=== PATIENT | male | born 1955 | race Caucasian/White ===

== ENCOUNTER 2023-07-27 13:03 | Outpatient (RCR) | payer MEDICARE, OTHER ==
[~2023-07-27 13:03] MED LIST: ASPIRIN 81M81 MG/TA2 PO; CALCIUM CITRAT950 MG PO; CARBATROL200 MG PO; CATAPRES 0.1MG0.1 MG PO; COLACE 100100 MG/CAP PO; COREG 25MG25 MG/TAB PO; COZAAR100 MG PO; CRESTOR20 MG PO; DARVOCET-N-101 UDTAB PO; DULCOLAX TAB5 MG PO; FLOMAX 0.40.4 MG/CAP PO; GABAPENTIN300 M1 PO; GLIMEPIRIDE PO; GLUCOPHAGE500 MG/TAB PO; HCTZ 25MG TAB25 MG PO; LAMICTAL 100MG100 MG PO; LAMICTAL PO; LANTUS100 U/ML SQ; LEVAMIR SQ; LISINOPRIL/HCTZ1 TAB PO; LISINOPRIL10 MG PO; MELATIN 3 MG-11 TAB PO; MSIR30 MG PO; NEURONTIN100 MG/CAP PO; NORVASC 10MG10 MG PO; NOVOLOG FLEX100 U/ML SQ; OMEGA 3 PO; OMEGA-3 FISH1000 MG PO; REFRESH OPTIVE10 M2 OP; RIBAVIRIN PO; SYNJARDY XR 5-1 EACH PO; TEGRETOL 2200 MG/TA1 PO; TRULICITY1.5 MG/0.5 SQ; ULTRAM 50MG TAB50 MG PO; VITAMIN D PO; ZYRTEC 10MG10 MG PO; [UNRECOGNIZED DRUG - OTHER]
== END 2023-07-29 | disposition home or self-care (01) ==
LOC: WSPT
DX: M51.36 Other intervertebral disc degeneration, lumbar region (principal); Z98.890 Other specified postprocedural states

== ENCOUNTER 2023-08-24 15:00 | Outpatient (RCR) | payer MEDICARE, OTHER | END 2023-08-27 | disposition home or self-care (01) | LOC: WSPT | DX: M51.36 Other intervertebral disc degeneration, lumbar region (principal); R53.1 Weakness; Z91.81 History of falling ==

== ENCOUNTER 2023-09-22 15:00 | Outpatient (RCR) | payer MEDICARE, OTHER | END 2023-09-27 | disposition home or self-care (01) | LOC: WSPT | DX: M51.36 Other intervertebral disc degeneration, lumbar region (principal); Z98.890 Other specified postprocedural states ==

== ENCOUNTER 2023-11-24 15:00 | Outpatient (RCR) | payer MEDICARE, OTHER | END 2023-11-27 | disposition home or self-care (01) | LOC: WSPT | DX: M51.36 Other intervertebral disc degeneration, lumbar region (principal); Z98.890 Other specified postprocedural states ==

== ENCOUNTER 2023-12-15 15:00 | Outpatient (RCR) | payer MEDICARE, OTHER | END 2023-12-27 | LOC: WSPT | DX: M51.36 Other intervertebral disc degeneration, lumbar region (principal); R29.6 Repeated falls; R53.1 Weakness ==